=== PATIENT | male | born 1955 | race Caucasian/White ===

== ENCOUNTER 2017-09-21 09:46 | Outpatient (CLI) | payer BC ==
--- NOTE | 2017-09-21 14:26 | PET ---
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 TECHNIQUE: PET scanning with CT attenuation correction was performed from the vertex through the feet following the intravenous administration of 12 mCi [id number] in the left antecubital fossa. Imaging was performed after an uptake interval of 51 minutes. COMPARISON: None. CORRELATION: None. FINDINGS: No hypermetabolic pulmonary nodules are seen. No savannah hypermetabolism is seen in the neck, chest, axilla, abdomen, pelvis, or inguinal regions. No hypermetabolic liver, adrenal, or skeletal lesions are seen. There is physiologic activity in the GI and tracts, and the brain. The CT scan used for attenuation correction demonstrates no evidence of pleural effusions or ascites. IMPRESSION: Negative PET scan. No evidence of hypermetabolic pulmonary nodule. Recommend follow-up of the pulmonary nodule with CT scan in 3 months. POS: [id number]
== END 2017-09-21 09:47 | disposition home or self-care (01) ==
LOC: PET 09:46
PROVIDERS: ATTEND Family Medicine
DX: R91.1 Solitary pulmonary nodule (principal); Z87.891 Personal history of nicotine dependence; Z85.46 Personal history of malignant neoplasm of prostate
CPT/HCPCS: 78816; A9552